=== PATIENT | female | born 1975 | race African-American/Black ===

== ENCOUNTER 2016-12-24 20:34 | Emergency (ER) | payer OTHER ==
[~2016-12-24] VITALS: Ht 180.3 cm; Wt 115.5 kg
[2016-12-24 20:41] VITALS: TEMP 97.8
[2016-12-24] MEDS ORDERED: SYNTHROID0.137 MG (20:44)
[2016-12-24] MEDS ORDERED: SYNTHROID0.137 MG PO (21:00)
[2016-12-24 21:13] VITALS: BP 134/77; PULSE 77
== END 2016-12-24 21:17 | disposition home or self-care (01) ==
LOC: COL.ER 20:34
DX: E03.9 Hypothyroidism, unspecified (principal); Z91.14 Patient's other noncompliance with medication regimen